=== PATIENT | male | born 1965 | race Two or more races ===

== ENCOUNTER 2020-10-20 10:25 | Emergency (ER) | payer BC ==
[2020-10-20 10:33] VITALS: TEMP 97.8; BMI 34.3
[2020-10-20] MEDS ORDERED: SODIUM CHLORIDE 1,000 ML IV STA (10:58)
[2020-10-20] MEDS ORDERED: KETOROLAC TROMETHAMINE 30 MG/1 ML VIAL IVPUSH ONE (10:58)
[2020-10-20 12:43] LABS: BASO % 0.1 % (0-2.0); EOS % 0.1 % (0-4.5); HEMATOCRIT 45.8 % (35.4-49); HEMOGLOBIN 15.6 GM/dL (11.7-16.9); LYMPH % 11.9 % (8-40); MCH 30.1 pg (25.7-33.7); MEAN CELL VOLUME 88.4 fl (80-96); MEAN PLT VOLUME 8.2 fl (7.5-11.1); MONO % 5.2 % (3.8-10.2); NEUT % 82.7 % (42.8-82.8); PLATELET COUNT 328 K/MM3 (134-434); RBC 5.18 M/mm3 (4.00-5.60); RDW 13.6 % (11.9-15.9); WHITE BLOOD COUNT 9.9 K/mm3 (4.0-10.0)
[2020-10-20 12:59] LABS: EPI CELLS 12 /uL (0-25.1); HYALINE CASTS 3 /uL (0-3.1); PH,URINE 5.5 (5.0-8.0); URINE APPEARANCE CLEAR; URINE BACTERIA 191 /uL (0-1359); URINE BILIRUBIN NEGATIVE (NEGATIVE); URINE COLOR YELLOW; URINE GLUCOSE (UA) NEGATIVE (NEGATIVE); URINE KETONE NEGATIVE (NEGATIVE); URINE LEUK ESTERASE NEGATIVE (NEGATIVE); URINE NITRITE NEGATIVE (NEGATIVE); URINE PROTEIN TRACE (NEGATIVE); URINE RBC 35 /uL (0-23.9); URINE UROBILINOGEN 0.2 mg/dL (0.2-1.0); URINE WBC 2 /uL (0-25.8)
[2020-10-20 13:02] LABS: POTASSIUM 3.7 mmol/L (3.5-5.1)
[2020-10-20 13:05] LABS: ALBUMIN 4.3 g/dl (3.4-5.0); BLOOD UREA NITROGEN 20.1 mg/dL (7-18); MAGNESIUM 2.1 mg/dL (1.8-2.4)
[2020-10-20 13:09] LABS: BILIRUBIN,TOTAL 0.4 mg/dL (0.2-1)
[2020-10-20 13:10] LABS: TOT PROT 7.9 g/dl (6.4-8.2)
[2020-10-20 13:12] LABS: CALCIUM 9.4 mg/dL (8.5-10.1)
[2020-10-20 15:46] VITALS: BP 132/78; PULSE 79
== END 2020-10-20 15:49 | disposition home or self-care (01) ==
LOC: JER 10:25
PROC: 3E0333Z Introduction of Anti-inflammatory into Peripheral Vein, Percutaneous Approach (ICD-10-PCS; principal; 2020-10-20)
PROC: 3E0337Z Introduction of Electrolytic and Water Balance Substance into Peripheral Vein, Percutaneous Approach (ICD-10-PCS; 2020-10-20)
DX: N23 Unspecified renal colic (principal)
CPT/HCPCS: 36415; 74176-TC; 80053; 81003; 83690; 83735; 85025; 87086; 99284-25

== ENCOUNTER 2022-05-26 04:24 | Day surgery (SDC) | payer BC ==
[2022-05-25 11:07] VITALS: BMI 21.8
[2022-05-26 07:44] VITALS: TEMP 97.6
[2022-05-26 08:51] VITALS: BP 113/71; PULSE 63; RESP 15
== END 2022-05-26 09:16 | disposition home or self-care (01) ==
LOC: JASU-ENDO 04:24
PROVIDERS: ATTEND Internal Medicine Gastroenterology
PROC: 0DBL8ZX Excision of Transverse Colon, Via Natural or Artificial Opening Endoscopic, Diagnostic (ICD-10-PCS; principal; 2022-05-26 08:45)
DX: Z12.11 Encounter for screening for malignant neoplasm of colon (principal); K63.5 Polyp of colon; K57.30 Diverticulosis of large intestine without perforation or abscess without bleeding; K64.8 Other hemorrhoids; Z86.010 Personal history of colon polyps
CPT/HCPCS: 88305-TC